=== PATIENT | male | born 1955 | race Caucasian/White ===

== ENCOUNTER 2019-03-24 10:29 | Emergency (ER) | payer OTHER ==
[2019-03-24] MEDS ORDERED: MARCAINE 0.5% INFILTRATI ONE ×2 (10:34→10:48)
[2019-03-24] MEDS ORDERED: XYLOCAINE 2% INFILTRATI ONE (10:36)
[2019-03-24] MEDS ORDERED: ZOSYN/NS 4.5GM/100ML 4.5 GM/100 ML VIAL IV ONE ×2 (10:45→10:56)
[2019-03-24] MEDS ORDERED: ZOFRAN ONE (10:46)
[2019-03-24] MEDS ORDERED: MORPHINE ONE (10:46)
[2019-03-24] MEDS ORDERED: NACL 0.9% 1000 ML 1,000 ML ONE (10:48)
--- NOTE | 2019-03-24 10:54 | Emergency Department Report ---
ED General Adult HPI - General Chief complaint: Extremity Injury, Upper Stated complaint: L INDEX FINGER CUT OFF Time Seen by Provider: 03/24/19 10:52 Source: patient Mode of arrival: Ambulatory Limitations: No Limitations - History of Present Illness Initial comments: 63 year old man apparently used his hands to try to separate 2 dogs. He suffered a near amputation of his left index finger and multiple other finger bites. He presents to triage stating he feels like he is in a state of shock, presumably because of weakness. He suffered no truncal trauma. He does present with an essentially normal blood pressure. He is a bit distraught but able to tell me that he takes cholesterol medicine and nothing else. - Related Data Allergies Allergy/AdvReac Type Severity Reaction Status Date / Time No Known Allergies Allergy Verified 03/24/19 10:35 ED Review of Systems ROS: Stated complaint: L INDEX FINGER CUT OFF Other details as noted in HPI Comment: All other systems reviewed and negative (but somewhat limited secondary to circumstance) ED Past Medical Hx - Past Medical History Previous Medical History?: Yes Hx Hypertension: No Additional medical history: High cholesterol - Surgical History Past Surgical History?: No - Social History Smoking Status: Current Every Day Smoker ED Physical Exam - General Limitations: Other (distraught patient not answering a lot of questions) General appearance: other (keeping eyes closed) - Head Head exam: Present: atraumatic - Eye Eye exam: Absent: periorbital swelling - ENT ENT exam: Present: mucous membranes moist - Neck Neck exam: Present: normal inspection - Respiratory Respiratory exam: Present: normal lung sounds bilaterally. Absent: respiratory distress - Cardiovascular Cardiovascular Exam: Present: regular rate, normal rhythm. Absent: systolic murmur, diastolic murmur, rubs, gallop - GI/Abdominal GI/Abdominal exam: Present: soft, normal bowel sounds. Absent: distended, tenderness - Extremities Exam Extremities exam: Present: other (there are multiple apparently superficial bites of the fingers. I counted 5 initially. All less than 1 cm in length and do not appear to be deep. There is a partial amputation obviously involving bone and the nailbed of the left terminal phalanx of the index finger mid nail bed. It appears to be adequately vascularized.) ED Course Vital Signs 03/24/19 11:06 Respiratory 16 Rate O2 Sat by Pulse 100 Oximetry - Reevaluation(s) Reevaluation #1: Except by Dr. Aragon at the [place] [facility] [place]. Finger will be splinted. All wounds will be checked irrigated. Antibiotics and analgesia. Tetanus toxoid given. 03/24/19 11:08 Reevaluation #2: Discussed with [facility]. Except by Dr. Aragon for transfer. Finger splinted. Irrigation as above. Antibiotics as above. 03/24/19 11:15 - Nerve Block Consent Obtained: verbal consent Time Out Performed: Yes Local Anesthetic Used: Marcaine 0.5% Side: left Nerve Blocks: other (finger) Procedure Successful: Yes Complications: none Patient Tolerated Procedure: well Additional Comments: 4-5 mL of 1% lidocaine/0.5% bupivacaine without epinephrine. Infiltrated on both sides of the base of the left index finger. ED Medical Decision Making - Lab Data Result diagrams: 03/24/19 11:00 03/24/19 11:00 Laboratory Results - last 24 hr 03/24/19 03/24/19 03/24/19 11:00 11:00 11:00 WBC 2.8 L RBC 4.91 Hgb 15.3 H Hct 45.4 MCV 92 MCH 31 MCHC 34 RDW 14.4 Plt Count 139 L Lymph % (Auto) 29.5 [place] % (Auto) 7.1 Eos % (Auto) 5.1 H Baso % (Auto) 1.2 Lymph # 0.8 L [place] # 0.2 Eos # 0.1 Baso # 0.0 Seg Neutrophils % 57.1 Seg Neutrophils # 1.6 L PT 13.5 INR 0.97 Sodium 140 Potassium 3.3 L Chloride 104.4 Carbon Dioxide 21 L Anion Gap 18 BUN 18 Creatinine 1.3 Estimated GFR 56 BUN/Creatinine Ratio 14 Glucose 120 H Calcium 8.8 - Radiology Data Radiology results: pending, image reviewed interpreted by me: Displaced fracture of the terminal phalanx of the left index finger. I don't see any other bony injury. Critical care attestation.: If time is entered above; I have spent that time in minutes in the direct care of this critically ill patient, excluding procedure time. ED Disposition Clinical Impression: Near amputation of finger of left hand Dog bite, hand Qualifiers: Encounter type: initial encounter Laterality: unspecified laterality Qualified Code(s): S61.459A - Open bite of unspecified hand, initial encounter Disposition: [id number]/[place]-70 ANOTHER TYPE HLTHCARE Is pt being admited?: No Does the pt Need Aspirin: No Condition: Stable Referrals: JOHN LONGORIA MD [Primary Care Provider] - 3-5 Days Time of Disposition: 11:16
[2019-03-24] MEDS ORDERED: MORPHINE IV ONE (10:56)
[2019-03-24] MEDS ORDERED: NACL 0.9% 1000 ML 1,000 ML IV ONE (10:56)
[2019-03-24] MEDS ORDERED: ZOFRAN IV ONE (10:56)
[2019-03-24] MEDS ORDERED: NACL 0.9% 500 ML IR ONE (11:04)
[2019-03-24] MEDS ORDERED: TENIVAC IM ONE (11:08)
[2019-03-24] MEDS ORDERED: BOOSTRIX IM ONE (11:13)
[2019-03-24 11:15] LABS: Basophils % (Auto) 1.2 % (0.0-1.8); Eosinophils # (Auto) 0.1 K/mm3 (0.0-0.4); Eosinophils % (Auto) 5.1 % (0.0-4.3); Hematocrit 45.4 % (35.5-45.6); Hemoglobin 15.3 gm/dl (11.8-15.2); Lymphocytes # (Auto) 0.8 K/mm3 (1.2-5.4); Lymphocytes % (Auto) 29.5 % (13.4-35.0); Mean Corpuscular HGB Conc 34 % (32-34); Mean Corpuscular Volume 92 fl (84-94); Monocytes # (Auto) 0.2 K/mm3 (0.0-0.8); Monocytes % (Auto) 7.1 % (0.0-7.3); Platelet Count 139 K/mm3 (140-440); Red Blood Count 4.91 M/mm3 (3.65-5.03); Red Cell Distribution Width 14.4 % (13.2-15.2)
[2019-03-24 11:25] LABS: INR 0.97 (0.87-1.13)
[2019-03-24 11:35] LABS: Calcium 8.8 mg/dL (8.4-10.2)
--- NOTE | 2019-03-24 13:10 | XRay Report ---
PROCEDURE: XR HAND BILAT 3+V TECHNIQUE: 3 views of each hand. HISTORY: Injury COMPARISON: None FINDINGS: There is a fracture involving the tuft of the second distal phalanx. This is slightly displaced anter iorly. No other acute fracture seen involving either right or left hand. There is no dislocation. IMPRESSION: Mildly displaced tuft fracture of left second distal phalanx. No acute abnormality seen i nvolving the right hand. This document is electronically signed by Miriam Luna MD., Mar 24 2019 01:08:00 PM ET
== END 2019-03-24 12:06 | disposition other institution (70) ==
LOC: ED 10:29
DX: S62.601A Fracture of unspecified phalanx of left index finger, initial encounter for closed fracture (principal); S61.257A Open bite of left little finger without damage to nail, initial encounter; S61.253A Open bite of left middle finger without damage to nail, initial encounter; S61.255A Open bite of left ring finger without damage to nail, initial encounter; S61.052A Open bite of left thumb without damage to nail, initial encounter; F17.200 Nicotine dependence, unspecified, uncomplicated; E78.00 Pure hypercholesterolemia, unspecified; W54.0XXA Bitten by dog, initial encounter; Y93.89 Activity, other specified; Y92.89 Other specified places as the place of occurrence of the external cause; Y99.8 Other external cause status
CPT/HCPCS: 29130; 36415; 73130; 80048; 85025; 85610; 90471; 90715; 96365; 96375; 99285; J2270; J2405; J2543; J7030